=== PATIENT | male | born 1950 | race Caucasian/White ===

== ENCOUNTER 2019-09-24 21:55 | Observation (INO) | payer MEDICARE, SELFPAY ==
--- NOTE | ~2019-09-24 | CT_ITS ---
EXAMINATION: CT abdomen pelvis wo con DATE: 09/24/2019 23:20 INDICATION: Left flank pain TECHNIQUE: Computed tomography (CT) of the abdomen and pelvis was performed without intravenous contr ast. The dose-length product was 820.25 mGy-cm. Automated exposure control and iterative reconstructi on technique were employed. COMPARISON: CT dated 11/26/2018 FINDINGS: Lung bases are unremarkable. No significant pleural or pericardial effusion. Heart size nor mal. Mild atherosclerosis. No lymphadenopathy. Enlarged prostate gland. There is a surgical anastomos is of the distal colon. There are ventral umbilical and supraumbilical hernias containing fat. Small liver cyst left hepatic lobe. There are multiple nonobstructing bilateral renal stones. Stable 14 mm hyperdense exophytic left renal mass, most likely a proteinaceous hyperdense cysts. There is a left mid ureteral stone measuring 5 mm with mild hydronephrosis. Gallbladder is present. Bowel patter n is nonobstructive. Enlarged prostate gland. There is dextrocurvature of the thoracolumbar spine. Th ere are degenerative changes of the hips. IMPRESSION: 1. 5 mm left mid ureteral stone at the L4 level. Mild hydronephrosis. 2: Nonobstructing bilateral nephrolithiasis. 3: Fat-containing supraumbilical and umbilical ventral hernias. 4: Stable 14 mm hyperdense mass exophytic from the left kidney, most likely hyperdense cyst given the lack of interval change. Reviewed, dictated and finalized at location A. IMPRESSION: 1. 5 mm left mid ureteral stone at the L4 level. Mild hydronephrosis. 2: Nonobstructing bilateral nephrolithiasis. 3: Fat-containing supraumbilical and umbilical ventral hernias. 4: Stable 14 mm hyperdense mass exophytic from the left kidney, most likely hyp erdense cyst given the lack of interval change.
[2019-09-24 21:59] VITALS: BP 179/83; PULSE 69; RESP 15; TEMP 36.5; O2SAT 94
--- NOTE | 2019-09-24 22:15 | PC.NURSE ---
asked EDP for pain medication. no further orders at this time.
[2019-09-24 22:22] LABS: Basophils Absolute Auto 0.1 K/mm3 (0.0-0.1); Basophils Percent Auto 0.9 % (0.2-1.2); Eosinophils Absolute Auto 0.3 K/mm3 (0-0.3); Eosinophils Percent Auto 4.1 % (0-4.4); Hematocrit 45.8 % (42.0-52.0); Hemoglobin 15.3 g/dL (14.0-18.0); Immature Granulocyte Absolute 0.01 K/mm3 (0.00-0.031); Immature Granulocyte Percent A 0.1 % (0-0.5); Lymphocytes Absolute Auto 2.35 K/mm3 (0.9-3.2); Lymphocytes Percent Auto 28.6 % (18.3-44.2); Mean Corpuscular HGB Conc 33.4 g/dl (32-36); Mean Corpuscular Hemoglobin 29.8 pg (26-34); Mean Corpuscular Volume 89.1 fl (80-100); Mean Platelet Volume 10.1 fl (7.4-10.4); Monocytes Absolute Auto 0.9 K/mm3 (0.1-0.6); Monocytes Percent Auto 10.4 % (2.6-8.5); Neutrophils Absolute Auto 4.6 K/mm3 (1.3-6.7); Neutrophils Percent Auto 55.9 % (45.5-73.1); Platelet Count Result 293 k/mm3 (150-375); Red Blood Count 5.14 M/mm3 (4.6-6.20); Red Cell Distribution Width 13.2 % (11.5-14.5); White Blood Count 8.2 K/mm3 (4.5-10.0)
[2019-09-24 22:27] LABS: Add Urine Microscopic? YES; Appearance Urine Cloudy (Clear); Bacteria Urine Trace /hpf; Bilirubin Urine Negative (Negative); Blood Urine 3+ (Negative); Color Urine Yellow (Yellow); Glucose Urine UA Negative (Negative); Ketones Urine Trace mg/dL (Negative); Leukocyte Esterase Ur 2+ LEU/UL (Negative); Mucus Urine Heavy /lpf; Nitrate Urine Negative (Negative); Protein Urine 1+ mg/dL (Negative); RBC Urine >75 /hpf (0-2); Specific Grav Ur 1.026 (1.001-1.035); Urobilinogen Urine Negative mg/dL (<2.0); WBC Urine 31-50 /hpf
[2019-09-24 22:33] LABS: Blood Urea Nitrogen 28 mg/dL (9-20); Calcium 9.1 mg/dL (8.4-10.2); Carbon Dioxide 25 mmol/L (22-30); Chloride 106 mmol/L (98-107); Estimated CRCL calculation 47 ml/min; Estimated Glomerular Filt Rate 54; Glucose 118 mg/dL (75-110); Potassium 4.2 mmol/L (3.4-5.0); Sodium 140 mmol/L (137-145)
--- NOTE | 2019-09-24 22:49 | ED.ABDPAIN ---
HPI - Abdominal Pain General Chief Complaint: Abdominal Pain Stated Complaint: L FLANK PAIN Time Seen by Provider: 09/24/19 22:29 Source: patient Mode of arrival: ambulatory Limitations: no limitations History of Present Illness HPI narrative: Patient is a 69-year-old male who presents to the emergency department with complaint of left flank pain. Patient reports onset of symptoms a little over an hour ago. Patient has prior history of kidney stones and states this feels similar. Patient reports onset of pain in the left CVA region of the back with radiation and migration around to the left flank and into the left lower quadrant. Patient denies any overt hematuria or dysuria. He has not had any nausea or vomiting. Patient did not take anything for pain prior to arrival. MD elicited complaint: flank pain Pertinent past history: kidney stones Onset (ago): hour(s) Location: L flank (left CVA region/back) Severity: similar to previous episodes Radiation: LLQ Migration to: L flank Exacerbating factors: nothing Relieving factors: nothing Treatments prior to arrival: other (none) Related Data Home Medications Medication Instructions Recorded Confirmed atorvastatin 09/25/19 Allergies Allergy/AdvReac Type Severity Reaction Status Date / Time sulfamethoxazole Allergy Severe NAUSEA Verified 11/26/18 22:33 VOMITING trimethoprim Allergy Severe NAUSEA Verified 11/26/18 22:33 VOMITING Penicillins Allergy Mild Unknown Verified 09/24/19 23:17 Review of Systems Review of Systems: All systems reviewed & are unremarkable except as noted in HPI and below Constitutional: Constitutional: Denies fever(s) Gastrointestinal: Gastrointestinal: Reports abdominal pain, Denies nausea and Denies vomiting Genitourinary: Genitourinary: Denies hematuria and Denies dysuria COUNT INCLUDES THE [facility] Past Medical History Medical History (Updated 09/25/19 @ 02:10 by Esperanza Sandy MD) Arthritis BPH (benign prostatic hyperplasia) Depression Erectile dysfunction GERD (gastroesophageal reflux disease) History of colon cancer Hyperlipidemia Hypertension Kidney stones Serous otitis media Vertigo Surgical History Surgical History (Updated 09/24/19 @ 22:55 by Esperanza Sandy MD) History of arthroscopy of right knee History of colon resection History of colonoscopy History of cystoscopy History of esophagogastroduodenoscopy (EGD) History of lithotripsy History of myringotomy Social History Social History (Updated 09/24/19 @ 22:56 by Esperanza Sandy MD) Smoking status: Never smoker Gender identity (if verbalized by the patient): Male Exam Const: General: cooperative, alert and uncomfortable Nutritional Appearance: well nourished Orientation/consciousness: patient oriented x3 Limitations: no limitations Resp: Effort & Inspection: normal respiratory effort Auscultation: clear to auscultation bilaterally Cardio: Rate: regular rate Rhythm: regular rhythm GI: GI Palp: Yes Soft to palpation and Yes Tenderness to palpation present (GI) (Left flank/lower quadrant) Auscultation: normal bowel sounds : General: Yes CVA tenderness on the left Skin: General skin exam: normal color Neuro: General: patient oriented x3 Cognition (Neuro): normal cognition Speech: normal speech Extrem: General: normal to inspection, full ROM and no clubbing, cyanosis or edema Psych: Mental Status: mental status grossly normal Affect: normal affect Attitude: cooperative Course Course Emergency Course: Patient given Toradol, 2 doses of fentanyl, IV acetaminophen, and Dilaudid in order to obtain pain control. Patient with left-sided ureteral stone. Plan will be admission to the hospital for pain management and urologic evaluation. 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 Advised to keep patient n.p.o. and will take patient for stent placement in the morning Date: 09/25/19 Time: 03:27 Vital S
[2019-09-24] MEDS: KETOROLAC 30 MG/ML VIAL (*BKC) IV PUSH (22:51)
--- NOTE | 2019-09-24 23:07 | PC.NURSE ---
Pt requesting pain medication. EDP notified no further orders.
[2019-09-24 23:33] VITALS: BP 165/82; PULSE 69; RESP 19; O2SAT 98
[2019-09-25 00:13] VITALS: BP 156/82; PULSE 58; RESP 17; O2SAT 94
[2019-09-25] MEDS: HYDROMORPHONE HCL 1 MG/ML INJ IV PUSH (01:14)
[2019-09-25 01:16] VITALS: BP 149/73; PULSE 61; RESP 15; O2SAT 96
[2019-09-25] MEDS: ONDANSETRON INJ 4 MG/2 ML VIAL IV PUSH (01:25)
[2019-09-25 02:10] VITALS: BP 143/70; PULSE 71; RESP 15; O2SAT 95
[2019-09-25 04:04] VITALS: BP 118/66; PULSE 67; RESP 17; TEMP 36.7; O2SAT 93
[2019-09-25] MEDS: LACTATED RINGERS 1,000 ML 125 ML IV CONT (04:40)
[2019-09-25 04:58] VITALS: BP 148/78; PULSE 62; RESP 20; TEMP 36.6; O2SAT 98; BMI 30.9
--- NOTE | 2019-09-25 07:49 | WPDANESEPPF ---
Anes - Initial Pre Proc Eval Procedure: Operation Date: 09/25/19 09:00 Proposed Procedures p Cysto, RPG, Stone Ext, Stent Placement - Stephen Agrawal MD Date/Time: 09/25/19 07:49 Surgeon: Stephen Agrawal MD Pre Op Diagnosis: Left ureteral stone Patient Data Age: 69 Gender: M Height: 5 ft 9 in Weight: 95.1 kg Last Vital Signs Temp 36.6 C 09/25/19 04:58 Pulse 62 09/25/19 04:58 Resp 20 09/25/19 04:58 BP 148/78 H 09/25/19 04:58 Pulse Ox 98 09/25/19 04:58 Allergies Allergy/AdvReac Type Severity Reaction Status Date / Time sulfamethoxazole Allergy Severe NAUSEA Verified 11/26/18 22:33 VOMITING trimethoprim Allergy Severe NAUSEA Verified 11/26/18 22:33 VOMITING Penicillins Allergy Mild Unknown Verified 09/24/19 23:17 Home Medications Medication Instructions Recorded Confirmed Type amlodipine 5 mg PO DAILY 09/25/19 09/25/19 History aspirin [Aspirin Low Dose] 81 mg PO DAILY 09/25/19 09/25/19 History atorvastatin 20 mg PO QPM 09/25/19 09/25/19 History docusate sodium [Colace] 100 mg PO DAILY 09/25/19 09/25/19 History escitalopram oxalate 20 mg PO DAILY 09/25/19 09/25/19 History lansoprazole 30 mg PO BID 09/25/19 09/25/19 History meclizine 12.5 - 25 mg PO TID PRN 09/25/19 09/25/19 History sildenafil [Viagra] 100 mg PO PRN PRN 09/25/19 09/25/19 History tamsulosin 0.4 mg PO DAILY 09/25/19 09/25/19 History Laboratory Tests 09/24/19 09/24/19 09/24/19 22:16 22:16 22:17 WBC 8.2 K/mm3 K/mm3 (4.5-10.0) RBC 5.14 M/mm3 M/mm3 (4.6-6.20) Hgb 15.3 g/dL g/dL (14.0-18.0) Hct 45.8 % % (42.0-52.0) MCV 89.1 fl fl (80-100) MCH 29.8 pg pg (26-34) MCHC 33.4 g/dl g/dl (32-36) RDW 13.2 % % (11.5-14.5) Plt Count 293 k/mm3 k/mm3 (150-375) MPV 10.1 fl fl (7.4-10.4) Immature Gran % (Auto) 0.1 % % (0-0.5) Neut % (Auto) 55.9 % % (45.5-73.1) Lymph % (Auto) 28.6 % % (18.3-44.2) [place] % (Auto) 10.4 % H % (2.6-8.5) Eos % (Auto) 4.1 % % (0-4.4) Baso % (Auto) 0.9 % % (0.2-1.2) Lymph # (Auto) 2.35 K/mm3 K/mm3 (0.9-3.2) [place] # (Auto) 0.9 K/mm3 H K/mm3 (0.1-0.6) Eos # (Auto) 0.3 K/mm3 K/mm3 (0-0.3) Baso # (Auto) 0.1 K/mm3 K/mm3 (0.0-0.1) Abs Immat Gran (auto) 0.01 K/mm3 K/mm3 (0.00-0.031) Absolute Neuts (auto) 4.6 K/mm3 K/mm3 (1.3-6.7) Absolute Nucleated RBC 0.0 K/mm3 K/mm3 (0.0-0.012) Nucleated RBC % 0.0 % % (0.0-0.2) Sodium 140 mmol/L mmol/L (137-145) Potassium 4.2 mmol/L mmol/L (3.4-5.0) Chloride 106 mmol/L mmol/L (98-107) Carbon Dioxide 25 mmol/L mmol/L (22-30) BUN 28 mg/dL H mg/dL (9-20) Creatinine 1.30 mg/dL mg/dL (0.7-1.3) Estim Creat Clear Calc 47 ml/min ml/min Estimated GFR 54 L (59 - ) Glucose 118 mg/dL H mg/dL (75-110) Calcium 9.1 mg/dL mg/dL (8.4-10.2) Urine Color Yellow (Yellow) Urine Appearance Cloudy H (Clear) Urine pH 5.0 (5.0-9.0) Ur Specific [place] 1.026 (1.001-1.035) Urine Protein 1+ mg/dL H mg/dL (Negative) Urine Glucose (UA) Negative mg/dL mg/dL (Negative) Urine Ketones Trace mg/dL mg/dL (Negative) Ur Blood (Man) 3+ H (Negative) Urine Nitrate Negative (Negative) Urine Bilirubin Negative (Negative) Urine Urobilinogen Negative mg/dL mg/dL (<2.0) Leukocyte Esterase Rfl 2+ MEME/UL H MEME/UL (Negative) Urine RBC >75 /hpf H /hpf (0-2) Urine WBC 31-50 /hpf H /hpf Urine Bacteria Trace /hpf /hpf Urine Mucus Heavy /lpf H /lpf Patient hx anesthesia problems: none Family hx anesthesia problems: none PMFSH Past Me
--- NOTE | 2019-09-25 08:51 | PM.IMHP ---
H&P: HPI History of Present Illness Chief complaint: Left ureteral stone Narrative: Franky Horowitz is a 69 year old male with a history of kidney stones admitted through the ER with left flank pain. CT KUB shows partially obstructing 5mm mid left ureteral stone. Pt also as several nonobstructing renal stone. His pain has resolved this morning and controlled with oral med. Pt has no N/V or fever and is voiding well. Review of Systems Constitutional: Constitutional: Reports no additional constitutional complaints Cardiovascular: Cardiovascular: Reports no additional cardiovascular complaints Respiratory: Respiratory: Reports no additional respiratory complaints Genitourinary: Genitourinary: Reports no additional male genitourinary complaints [facility] Past Medical History Medical History Arthritis BPH (benign prostatic hyperplasia) Depression Erectile dysfunction GERD (gastroesophageal reflux disease) History of colon cancer Hyperlipidemia Hypertension Kidney stones Serous otitis media Vertigo Surgical History Surgical History History of arthroscopy of right knee History of colon resection History of colonoscopy History of cystoscopy History of esophagogastroduodenoscopy (EGD) History of lithotripsy History of myringotomy Family History Family History Father Acute myocardial infarction Congestive heart failure Social History Social History Smoking status: Never smoker Alcohol intake: never Substance use: never Substance use type: does not use Gender identity (if verbalized by the patient): Male Spiritual care concerns: No Agree to blood products: Yes Meds Home Medications and Allergies Home Medications Medication Instructions Recorded Confirmed Type amlodipine 5 mg PO DAILY 09/25/19 09/25/19 History aspirin [Aspirin Low Dose] 81 mg PO DAILY 09/25/19 09/25/19 History atorvastatin 20 mg PO QPM 09/25/19 09/25/19 History docusate sodium [Colace] 100 mg PO DAILY 09/25/19 09/25/19 History escitalopram oxalate 20 mg PO DAILY 09/25/19 09/25/19 History lansoprazole 30 mg PO BID 09/25/19 09/25/19 History meclizine 12.5 - 25 mg PO TID PRN 09/25/19 09/25/19 History sildenafil [Viagra] 100 mg PO PRN PRN 09/25/19 09/25/19 History tamsulosin 0.4 mg PO DAILY 09/25/19 09/25/19 History Allergies Allergy/AdvReac Type Severity Reaction Status Date / Time sulfamethoxazole Allergy Severe NAUSEA Verified 11/26/18 22:33 VOMITING trimethoprim Allergy Severe NAUSEA Verified 11/26/18 22:33 VOMITING Penicillins Allergy Mild Unknown Verified 09/24/19 23:17 Vital Signs Vital Signs - 24 hr 09/24/19 21:59 09/24/19 23:33 09/25/19 00:13 Temperature 36.5 C Pulse Rate 69 69 58 L Respiratory Rate 15 19 17 Blood Pressure 179/83 H 165/82 H 156/82 H Pulse Oximetry 94 98 94 09/25/19 01:16 09/25/19 02:10 09/25/19 04:04 Temperature 36.7 C Pulse Rate 61 71 67 Respiratory Rate 15 15 17 Blood Pressure 149/73 H 143/70 H 118/66 Pulse Oximetry 96 95 93 09/25/19 04:58 Temperature 36.6 C Pulse Rate 62 Respiratory Rate 20 Blood Pressure 148/78 H Pulse Oximetry 98 H&P: Results Labs Labs: Short CBC 09/24/19 Range/Units 22:17 WBC 8.2 (4.5-10.0) K/mm3 Hgb 15.3 (14.0-18.0) g/dL Hct 45.8 (42.0-52.0) % Plt Count 293 (150-375) k/mm3 BMP 09/24/19 22:16 Sodium 140 Potassium 4.2 Chloride 106 Carbon Dioxide 25 BUN 28 H Creatinine 1.30 Glucose 118 H Calcium 9.1 Urine 09/24/19 Range/Units 22:16 Urine Color Yellow (Yellow) Urine Appearance Cloudy H (Clear) Urine pH 5.0 (5.0-9.0) Ur Specific [place] 1.026 (1.001-1.035) Urine Protein 1+ H (Negative) mg/dL Urine Glucose (UA) Negative (Negative) mg/dL
== END 2019-09-25 10:24 | disposition home or self-care (01) ==
LOC: ANHED 09-25 02:10 → ANH2MED 09-25 03:37
PROVIDERS: Admitting Provider Urology; Emergency Provider Emergency Medicine; PCP Internal Medicine; Visit Provider Urology
PROC: (CPT 52352; principal; 2019-09-25 09:00)
DX: N20.1 Calculus of ureter (principal); Z87.442 Personal history of urinary calculi; N40.0 Benign prostatic hyperplasia without lower urinary tract symptoms; N52.9 Male erectile dysfunction, unspecified; I10 Essential (primary) hypertension; E78.5 Hyperlipidemia, unspecified; K21.9 Gastro-esophageal reflux disease without esophagitis; Z79.82 Long term (current) use of aspirin; Z79.899 Other long term (current) drug therapy; Z85.038 Personal history of other malignant neoplasm of large intestine
CPT/HCPCS: 36415; 74176; 80048; 81001; 85025; 87040; 87086; 96361; 96365; 96375; 96376; 99285; A9270; G0378; J0131; J0696; J1170; J1885; J2405; J3010; J7120

== ENCOUNTER 2019-09-28 00:27 | Day surgery (SDC) | payer MEDICARE, SELFPAY ==
[2019-09-27 15:32] VITALS: BMI 28.8
[2019-09-28] VITALS (9 sets, daily range): BP systolic 143–161; BP diastolic 68–94; PULSE 58–85; RESP 8–20; TEMP 35.6–36.1; O2SAT 93–99
--- NOTE | ~2019-09-28 | XR_ITS ---
EXAMINATION: XR retrograde pyelo w/stent LT DATE: 09/28/2019 11:01 INDICATION: Left internal ureteral stent placement TECHNIQUE: Fluoroscopic images from a left internal ureteral stent placement are submitted for review . 5 fluoroscopic images. FINDINGS: There is a left double-J internal ureteral stent projecting in expected position, with proximal [place] loop at the level of the renal pelvis and distal loop in the pelvis within the bladder lumen. IMPRESSION: 1. Left internal ureteral stent placement. Please refer to real-time procedural findings for detail s. Reviewed, dictated and finalized at location A. IMPRESSION: 1. Left internal ureteral stent placement. Please refer to real-time procedur al findings for details.
--- NOTE | 2019-09-28 07:03 | ECG_ITS ---
Measurements Intervals [place] Rate: 75 P: 20 AR: 128 QRS: -30 QRSD: 112 T: 34 QT: 384 QTc: 430 Interpretive Statements SINUS RHYTHM INTRAVENTRICULAR CONDUCTION DELAY BORDERLINE R WAVE PROGRESSION, ANTERIOR LEADS BORDERLINE ECG Electronically Signed On 09-28-2019 9:00:41 CDT by Tono Cortés D.O.
--- NOTE | 2019-09-28 09:11 | WPDHPUPDATE1 ---
History and Physical Update Update Date/Time: 09/28/19 09:11 History and Physical has been reviewed, including an updated exam of the patient. There are NO changes in the patient's condition. Risks, benefits, and alternatives have been discussed and questions answered. Patient agrees to proceed with procedure.
[2019-09-28] MEDS: LACTATED RINGERS 1,000 ML 30 ML IV CONT (09:30)
--- NOTE | 2019-09-28 09:55 | WPDANESEPPF ---
Anes - Initial Pre Proc Eval Procedure: Operation Date: 09/28/19 11:00 Proposed Procedures p Left Cystoscopy, Retrograde Pyelogram, Possible Stone Extraction, Possible Left Stent Placement - Dante Galindo MD s Holmium Laser Procedure - Dante Galindo MD Date/Time: 09/28/19 09:55 Surgeon: Dante Galindo MD Pre Op Diagnosis: left ureteral stone Patient Data Age: 69 Gender: M Height: 5 ft 9 in Weight: 91.5 kg Last Vital Signs Temp 35.6 C L 09/28/19 08:48 Pulse 85 09/28/19 08:48 Resp 20 09/28/19 08:48 BP 159/76 H 09/28/19 08:48 Pulse Ox 99 09/28/19 08:48 Allergies Allergy/AdvReac Type Severity Reaction Status Date / Time sulfamethoxazole Allergy Severe NAUSEA Verified 09/28/19 08:56 VOMITING trimethoprim Allergy Severe NAUSEA Verified 09/28/19 08:56 VOMITING Penicillins AdvReac Mild HEADACHES Verified 09/28/19 08:56 Home Medications Medication Instructions Recorded Confirmed Type amlodipine 5 mg PO DAILY 09/25/19 09/28/19 History aspirin [Aspirin Low Dose] 81 mg PO DAILY 09/25/19 09/27/19 History atorvastatin 20 mg PO QPM 09/25/19 09/28/19 History docusate sodium [Colace] 100 mg PO DAILY 09/25/19 09/28/19 History escitalopram oxalate 20 mg PO DAILY 09/25/19 09/28/19 History hydrocodone-acetaminophen [[place]] 1 tablet PO Q4H PRN #20 tablet NS 09/25/19 09/28/19 Rx meclizine 12.5 - 25 mg PO TID PRN 09/25/19 09/28/19 History sildenafil [Viagra] 100 mg PO PRN PRN 09/25/19 09/27/19 History tamsulosin 0.4 mg PO DAILY 09/25/19 09/27/19 History omeprazole 40 mg PO DAILY 09/27/19 09/28/19 History Patient hx anesthesia problems: none Family hx anesthesia problems: none PMFSH Past Medical History Medical History Arthritis BPH (benign prostatic hyperplasia) Depression Erectile dysfunction GERD (gastroesophageal reflux disease) History of colon cancer Hyperlipidemia Hypertension Kidney stones Serous otitis media Vertigo Surgical History Surgical History History of arthroscopy of right knee History of colon resection History of colonoscopy History of cystoscopy History of esophagogastroduodenoscopy (EGD) History of lithotripsy History of myringotomy Family History Family History Father Acute myocardial infarction Congestive heart failure Social History Social History Smoking status: Never smoker Alcohol intake: never Substance use: never Substance use type: does not use Gender identity (if verbalized by the patient): Male Spiritual care concerns: No Agree to blood products: Yes Anes - Eval Final PreProcedure Day of Procedure 09/28/19 09:55 Patient weight: overweight Heart: regular rate and rhythm Lungs: clear to auscultation Airway: Mallampati scale class II Neurological: alert and oriented Last oral intake: >/= 8 hours ASA classification: III Emergent: no Anesthetic plan: proceed Anesthesia type and monitoring: general LMA and standard monitoring Informed Consent: The patient's anesthetic plan and its attendant risks and benefits were discussed with the patient/family/POA. Questions were solicited and answers provided to the satisfaction of the patient/family/POA.
[2019-09-28] MEDS: ceFAZolin 2 GM/D5W 50 ML 2 GM/50 ML BAG IVPB (10:15)
[2019-09-28] MEDS: LIDOCAINE HCL 2% GEL UROJET 10 ML PKG MUCOUS MEM (10:59)
--- NOTE | 2019-09-28 10:59 | PM.PROC ---
Procedure Note - Detailed Date of procedure: 09/28/19 Pre-op diagnosis: left ureteral stone Post-op diagnosis: same Procedure performed: Cystoscopy, left retrograde pyelogram, left ureteroscopy with holmium laser of ureteral calculus, left stent placement, Description of procedure: Patient was taken to the operative suite and correctly identified. Once anesthesia was obtained he was placed in dorsal lithotomy position and prepped and draped usual sterile fashion. Twenty-two Hebrew scope was inserted in bladder in direct vision. There are no tumors noted. He does have an enlarged obstructing appearing prostate with a bit of a median lobe. The left ureteral orifice was cannulated with a guidewire. A rigid ureteral scope was then inserted into the ureter. The stone was visualized but too large to retrieve in 1 piece. An escape basket was placed around the stone. We then used a 270 micron fiber to fragment the stone into multiple pieces. The largest stone was sent for analysis. Reinspection of the ureter reveals no residual ureteral stones. Pyelogram was then performed to confirm placement of the stent in the renal pelvis. A 4.8 contour stent was then placed with the proximal end coiled in the left renal pelvis. The distal end was coiled in the bladder. Bladder was drained and 2% viscous lidocaine was inserted into the urethra. Patient is taken recovery room in stable condition. He will follow up in about 1 week's time for stent removal is to call for that appointment. Anesthesia: GLMA Surgeon: Dante Galindo MD Drains: Yes Packing: No Pathology: yes Complications: No immediate complications Condition: stable Disposition: PACU
== END 2019-09-28 12:52 | disposition home or self-care (01) ==
PROVIDERS: PCP Internal Medicine; Visit Provider Urology
PROC: (CPT 52352; principal; 2019-09-28 11:00)
PROC: (CPT 52356; 2019-09-28 11:00)
DX: N20.1 Calculus of ureter (principal); I10 Essential (primary) hypertension; E78.5 Hyperlipidemia, unspecified; K21.9 Gastro-esophageal reflux disease without esophagitis; N40.0 Benign prostatic hyperplasia without lower urinary tract symptoms; M19.90 Unspecified osteoarthritis, unspecified site; F32.9 Major depressive disorder, single episode, unspecified; Z85.038 Personal history of other malignant neoplasm of large intestine; Z79.82 Long term (current) use of aspirin
CPT/HCPCS: 52356; 74420; 82365; 88300; 88305; 93005; C1758; C1769; C2617; J0690; J1100; J2405; J2704; J3010; J7120; Q9966

== ENCOUNTER 2019-12-02 10:31 | Outpatient (CLI) | payer MEDICARE, SELFPAY ==
--- NOTE | ~2019-12-02 | XR_ITS ---
EXAMINATION: XR abdomen/kub 1V INDICATION: Calculus of the kidney with calculus of the ureter TECHNIQUE: Supine views of the abdomen were obtained on 2 radiographs. COMPARISON: 09/24/2019 FINDINGS: Stones measuring 4 mm and 5 mm are seen in the mid and lower right kidney, respectively. A stone previously seen in the left proximal ureter on the comparison CT is not definitely identified. Left nephrolithiasis on the comparison CT is also not seen. A 4 mm linear density in the left pelvis could reflect a stone fragment in the distal ureter. A bone island is noted in the right acetabulum. The bowel gas pattern is normal. A surgical suture line is noted in the rectum. IMPRESSION: 1. Possible stone or stone fragment in the distal left ureter. 2. Right nephrolithiasis. Reviewed, dictated and finalized at location A.
== END 2019-12-02 10:32 | disposition home or self-care (01) ==
PROVIDERS: Visit Provider Urology
DX: N20.2 Calculus of kidney with calculus of ureter (principal)
CPT/HCPCS: 74018

== ENCOUNTER 2020-01-27 16:13 | Emergency (ER) | payer MEDICARE, SELFPAY ==
[2020-01-27] VITALS (18 sets, daily range): BP systolic 143–167; BP diastolic 71–92; PULSE 80–89; RESP 16–18; TEMP 36.6; O2SAT 94–100
--- NOTE | 2020-01-27 16:41 | ED.MALEGU ---
HPI - Male Genitourinary General Chief complaint: Urogenital-Male Stated complaint: unable to urinate s/p procedure Time Seen by Provider: 01/27/20 16:15 History of Present Illness HPI Narrative: He has cystoscopy and prostate biopsy performed at [place] earlier today. He developed severe pain in the lower abdomen, inability to urinate, and blood leaking from the penis. He has not had urinary retention in the past. Related Data Home Medications Medication Instructions Recorded Confirmed amlodipine 5 mg PO DAILY 09/25/19 09/28/19 aspirin [Aspirin Low Dose] 81 mg PO DAILY 09/25/19 09/27/19 atorvastatin 20 mg PO QPM 09/25/19 09/28/19 escitalopram oxalate 20 mg PO DAILY 09/25/19 09/28/19 meclizine 12.5 - 25 mg PO TID PRN 09/25/19 09/28/19 sildenafil [Viagra] 100 mg PO PRN PRN 09/25/19 09/27/19 tamsulosin 0.4 mg PO DAILY 09/25/19 09/27/19 omeprazole 40 mg PO DAILY 09/27/19 09/28/19 diphenhydramine-acetaminophen 1 tablet PO HS PRN 01/27/20 phenazopyridine 200 mg PO TID PRN 01/27/20 Allergies Allergy/AdvReac Type Severity Reaction Status Date / Time sulfamethoxazole Allergy Severe NAUSEA Verified 09/28/19 08:56 VOMITING trimethoprim Allergy Severe NAUSEA Verified 09/28/19 08:56 VOMITING Penicillins AdvReac Mild HEADACHES Verified 09/28/19 08:56 Review of Systems Review of Systems: All systems reviewed & are unremarkable except as noted in HPI and below Constitutional: Constitutional: Denies fever(s) Cardiovascular: Cardiovascular: Denies chest pain Respiratory: Respiratory: Denies dyspnea Gastrointestinal: Gastrointestinal: Reports abdominal pain, Denies nausea and Denies vomiting Genitourinary: Genitourinary: Reports hematuria Musculoskeletal: Musculoskeletal: Denies back pain Neurologic: Denies confusion and Denies weakness [facility] Past Medical History Medical History Arthritis BPH (benign prostatic hyperplasia) Depression Erectile dysfunction GERD (gastroesophageal reflux disease) History of colon cancer Hyperlipidemia Hypertension Kidney stones Serous otitis media Vertigo Surgical History Surgical History History of arthroscopy of right knee History of colon resection History of colonoscopy History of cystoscopy History of esophagogastroduodenoscopy (EGD) History of lithotripsy History of myringotomy Family History Family History Father Acute myocardial infarction Congestive heart failure Social History Social History Smoking status: Never smoker Alcohol intake: never Substance use: never Substance use type: does not use Gender identity (if verbalized by the patient): Male Spiritual care concerns: No Agree to blood products: Yes Exam Const: General: healthy appearing and alert Orientation/consciousness: patient oriented x3 Other: mild distress HENMT: Head: normal to inspection Neck: Neck: normal visual inspection and no lymphadenopathy Resp: Effort & Inspection: normal respiratory effort Auscultation: clear to auscultation bilaterally, no rales, no rhonchi and no wheezes Cardio: Jugular venous distension: no JVD Rate: regular rate Rhythm: regular rhythm Heart sounds: no murmurs GI: Inspection: non-distended GI Palp: No Tenderness to palpation present (GI) : General: Yes Bladder palpation abnormal distended and tender Skin: General skin exam: normal color Neuro: General: patient oriented x3, moves all extremities and no focal motor deficits Cranial nerves: Yes CN's II-XII intact bilaterally Speech: normal speech Extrem: General: normal to inspection and no edema Psych: Appearance: well kempt Affect: normal affect Course Vital Signs Vital signs: Vital Signs Temperature 36.6 C 01/27/20 16:25 Pulse Rate 89
== END 2020-01-27 20:00 | disposition home or self-care (01) ==
PROVIDERS: Emergency Provider Emergency Medicine
DX: N99.89 Other postprocedural complications and disorders of genitourinary system (principal); R33.8 Other retention of urine; N40.1 Benign prostatic hyperplasia with lower urinary tract symptoms; M19.90 Unspecified osteoarthritis, unspecified site; K21.9 Gastro-esophageal reflux disease without esophagitis; E78.5 Hyperlipidemia, unspecified; I10 Essential (primary) hypertension; Z85.038 Personal history of other malignant neoplasm of large intestine; Z90.49 Acquired absence of other specified parts of digestive tract; F32.9 Major depressive disorder, single episode, unspecified; N52.9 Male erectile dysfunction, unspecified; Z87.442 Personal history of urinary calculi
CPT/HCPCS: 51700; 51702; 99283

== ENCOUNTER 2020-04-24 03:35 | Emergency (ER) | payer MEDICARE, SELFPAY ==
--- NOTE | ~2020-04-24 | CT_ITS ---
EXAMINATION: CT abdomen pelvis wo con DATE: 04/24/2020 04:00 INDICATION: Right flank pain. History of kidney stones. TECHNIQUE: Computed tomography (CT) of the abdomen and pelvis was performed without intravenous contr ast. The dose-length product was 1018.99 mGy-cm. Automated exposure control and iterative reconstruct ion technique were employed. COMPARISON: CT dated 09/24/2019 FINDINGS: There is a 5 mm right mid ureteral stone with mild-moderate right hydronephrosis. There is a large amount of perinephric and periureteral edema, suspicious for forniceal rupture. There are non obstructing bilateral renal stones. There is a hyperdense cyst of the left kidney. Enlarged prostate gland. There is surgical anastomotic site in the pelvis. Fat-containing supraumbilical and umbilical ventral hernias. No bowel obstruction. The liver, spleen, pancreas, adrenal glands are unremarkable. No lymphadenopathy. Mild atherosclerosi s. IMPRESSION: 1. 5 mm right mid ureteral stone with mild-moderate right hydronephrosis with possible forniceal rupt ure as evidenced by large amount of perinephric edema. 2: Nonobstructing bilateral nephrolithiasis. Reviewed, dictated and finalized at location B. TRIC RANGE PREPARER IMPRESSION: 1. 5 mm right mid ureteral stone with mild-moderate right hydronephrosis with p ossible forniceal rupture as evidenced by large amount of perinephric edema. 2: Nonobstructing bilateral nephrolithiasis.
[2020-04-24 03:37] VITALS: BP 185/88; PULSE 66; RESP 26; TEMP 36.6; O2SAT 96
[2020-04-24 04:06] LABS: Basophils Absolute Auto 0.1 K/mm3 (0.0-0.1); Eosinophils Absolute Auto 0.2 K/mm3 (0-0.3); Eosinophils Percent Auto 2.3 % (0-4.4); Hematocrit 40.9 % (42.0-52.0); Hemoglobin 13.7 g/dL (14.0-18.0); Immature Granulocyte Absolute 0.02 K/mm3 (0.00-0.031); Immature Granulocyte Percent A 0.3 % (0-0.5); Lymphocytes Absolute Auto 1.29 K/mm3 (0.9-3.2); Lymphocytes Percent Auto 18.7 % (18.3-44.2); Mean Corpuscular HGB Conc 33.5 g/dl (32-36); Mean Corpuscular Hemoglobin 29.9 pg (26-34); Mean Corpuscular Volume 89.3 fl (80-100); Mean Platelet Volume 9.4 fl (7.4-10.4); Monocytes Absolute Auto 0.4 K/mm3 (0.1-0.6); Monocytes Percent Auto 5.6 % (2.6-8.5); Neutrophils Percent Auto 72.1 % (45.5-73.1); Platelet Count Result 231 k/mm3 (150-375); Red Blood Count 4.58 M/mm3 (4.6-6.20); Red Cell Distribution Width 13.2 % (11.5-14.5); White Blood Count 6.9 K/mm3 (4.5-10.0)
[2020-04-24] MEDS: ONDANSETRON INJ 4 MG/2 ML VIAL IV PUSH (04:09)
[2020-04-24] MEDS: HYDROmorphone HCL INJ (*CRX) 1 MG/ML SYR 0.5 MG IV PUSH (04:09)
[2020-04-24] MEDS: SODIUM CHLORIDE 0.9% IV 1,000 ML 999 ML IV CONT (04:09)
[2020-04-24] MEDS: KETOROLAC 30 MG/ML VIAL (*BKC) 15 MG IV PUSH (04:10)
[2020-04-24 04:15] LABS: Alanine Aminotransferase 40 U/L (4-50); Albumin Level 4.1 g/dL (3.5-5.1); Alkaline Phosphatase 133 U/L (38-126); Anion Gap 7 mmol/L (8-16); Aspartate Amino Transferase 38 U/L (17-59); Bilirubin,Total 0.5 mg/dL (0.2-1.3); Blood Urea Nitrogen 24 mg/dL (9-20); Carbon Dioxide 29 mmol/L (22-30); Chloride 105 mmol/L (98-107); Estimated CRCL calculation 50 ml/min; Estimated Glomerular Filt Rate 60; Glucose 184 mg/dL (75-110); Lipase 48 U/L (23-300); Sodium 141 mmol/L (137-145)
[2020-04-24] MEDS: HYDROmorphone HCL INJ (*CRX) 1 MG/ML SYR IV PUSH (04:55)
--- NOTE | 2020-04-24 05:05 | ED.ABDPAIN ---
HPI - Abdominal Pain General Chief Complaint: Abdominal Pain Stated Complaint: kidney stone? Time Seen by Provider: 04/24/20 03:41 History of Present Illness HPI narrative: Patient is a 69-year-old gentleman who presents the emergency department with chief complaint of abdominal pain. Patient states the pain is in the right side of his abdomen states that it says sharp states that it is not really able to fully describe. Patient reports this feels different from whenever he got his previous kidney stones but does have a similar feel to it as well. The patient states in the past has had prior surgeries including a bowel resection. Patient states that he had a small bowel movement last 24 hours patient denies urinary symptoms denies blood in his urine denies fever or chills. Related Data Home Medications Medication Instructions Recorded Confirmed amlodipine 5 mg PO DAILY 09/25/19 09/28/19 aspirin [Aspirin Low Dose] 81 mg PO DAILY 09/25/19 09/27/19 atorvastatin 20 mg PO HS 09/25/19 09/28/19 escitalopram oxalate 20 mg PO DAILY 09/25/19 09/28/19 meclizine 12.5 - 25 mg PO TID PRN 09/25/19 09/28/19 sildenafil [Viagra] 100 mg PO PRN PRN 09/25/19 09/27/19 tamsulosin 0.4 mg PO DAILY 09/25/19 09/27/19 diphenhydramine-acetaminophen 1 tablet PO HS PRN 01/27/20 docusate sodium [Colace] 100 mg PO HS 04/24/20 finasteride 5 mg PO DAILY 04/24/20 lansoprazole 30 mg PO DAILY 04/24/20 Allergies Allergy/AdvReac Type Severity Reaction Status Date / Time sulfamethoxazole Allergy Severe NAUSEA Verified 04/24/20 04:37 VOMITING trimethoprim Allergy Severe NAUSEA Verified 04/24/20 04:37 VOMITING Penicillins AdvReac Mild HEADACHES Verified 04/24/20 04:37 Review of Systems Review of Systems: Narrative: CONSTITUTIONAL: Denies fever, chills, or sweats. EYES: Denies visual changes, redness, or discharge. ENT: Denies rhinorrhea, congestion, sore throat, or otalgia. CARDIOVASCULAR: Denies chest pain, palpitations, or edema. RESPIRATORY: Denies cough or dyspnea. GASTROINTESTINAL: Denies abdominal pain, nausea, vomiting, or diarrhea. GENITOURINARY: Denies dysuria or hematuria. SKIN: Denies rash or itching. MUSCULOSKELETAL: Denies back pain, joint pain, or myalgia. NEUROLOGIC: Denies headache, numbness, or weakness. PSYCHIATRIC: Denies anxiety or depression. A 10 system review of systems was completed on the patient and is negative except for what is stated in the HPI. Nursing and ancillary documentation was reviewed. [facility] Past Medical History Medical History (Updated 04/24/20 @ 06:18 by Porfirio Valerio MD) Arthritis BPH (benign prostatic hyperplasia) Depression Erectile dysfunction GERD (gastroesophageal reflux disease) History of colon cancer Hyperlipidemia Hypertension Kidney stones Serous otitis media Vertigo Surgical History Surgical History History of arthroscopy of right knee History of colon resection History of colonoscopy History of cystoscopy History of esophagogastroduodenoscopy (EGD) History of lithotripsy History of myringotomy Family History Family History Father Acute myocardial infarction Congestive heart failure Social History Social History Smoking status: Never smoker Alcohol intake: never Substance use: never Substance use type: does not use Gender identity (if verbalized by the patient): Male Spiritual care concerns: No Agree to blood products: Yes Exam Narrative: Exam Narrative: GENERAL: Well-appearing, well-nourished, and in no acute distress. HEAD: Normocephalic, atraumatic. EYES: PERRLA and EOMI. ENT: Nares clear, no rhinorrhea or epistaxis. Mucous membranes moist. NECK: Supple. CHEST: Clear to auscultation. No respiratory distress. HEART: Regular rate and rhythm. No murmur he
[2020-04-24 05:14] LABS: Add Urine Microscopic? YES; Appearance Urine Clear (Clear); Bilirubin Urine Negative (Negative); Blood Urine 2+ (Negative); Color Urine Yellow (Yellow); Glucose Urine UA 1+ mg/dL (Negative); Ketones Urine Negative (Negative); Leukocyte Esterase Ur Negative LEU/UL (Negative); Mucus Urine Rare /lpf; Nitrate Urine Negative (Negative); Protein Urine Negative (Negative); RBC Urine 51-75 /hpf (0-2); Specific Grav Ur 1.019 (1.001-1.035); Urobilinogen Urine Negative mg/dL (<2.0)
[2020-04-24 06:28] VITALS: BP 144/76; PULSE 67; RESP 16; O2SAT 96
== END 2020-04-24 06:30 | disposition home or self-care (01) ==
PROVIDERS: Emergency Provider Emergency Medicine; PCP Internal Medicine
DX: N13.2 Hydronephrosis with renal and ureteral calculous obstruction (principal); M19.90 Unspecified osteoarthritis, unspecified site; N40.0 Benign prostatic hyperplasia without lower urinary tract symptoms; K21.9 Gastro-esophageal reflux disease without esophagitis; Z85.038 Personal history of other malignant neoplasm of large intestine; E78.5 Hyperlipidemia, unspecified; I10 Essential (primary) hypertension; Z87.442 Personal history of urinary calculi; F32.9 Major depressive disorder, single episode, unspecified; Z90.49 Acquired absence of other specified parts of digestive tract; Z79.82 Long term (current) use of aspirin
CPT/HCPCS: 36415; 74176; 80053; 81001; 83605; 83690; 85025; 86140; 87040; 87077; 87086; 87088; 87186; 87635; 93005; 96361; 96374; 96375; 96376; 99284; C9803; J1170; J1885; J2405; J7030; U0003

== ENCOUNTER 2020-04-24 16:45 | Emergency (ER) | payer MEDICARE, SELFPAY ==
[2020-04-24 16:46] VITALS: BP 162/69; PULSE 89; RESP 19; TEMP 38.1; O2SAT 99
[2020-04-24 17:01] VITALS: BP 155/81; PULSE 93; RESP 14; O2SAT 97
--- NOTE | 2020-04-24 17:04 | ECG_ITS ---
Measurements Intervals [place] Rate: 90 P: 28 W[place]: 151 QRS: -29 QRSD: 99 T: 70 QT: 364 QTc: 447 Interpretive Statements SINUS RHYTHM BORDERLINE R WAVE PROGRESSION, ANTERIOR LEADS BASELINE ARTIFACT- I, II, AVR, AVF, V1 BORDERLINE ECG Electronically Signed On 04-24-2020 17:08:47 WEIR FISHER by Tono Cortés D.O.
[2020-04-24 17:12] LABS: Basophils Percent Auto 0.2 % (0.2-1.2); Eosinophils Percent Auto 0.5 % (0-4.4); Hematocrit 43.1 % (42.0-52.0); Hemoglobin 14.3 g/dL (14.0-18.0); Immature Granulocyte Absolute 0.03 K/mm3 (0.00-0.031); Immature Granulocyte Percent A 0.3 % (0-0.5); Lymphocytes Absolute Auto 0.52 K/mm3 (0.9-3.2); Lymphocytes Percent Auto 6.1 % (18.3-44.2); Mean Corpuscular HGB Conc 33.2 g/dl (32-36); Mean Corpuscular Hemoglobin 30.4 pg (26-34); Mean Corpuscular Volume 91.7 fl (80-100); Mean Platelet Volume 9.4 fl (7.4-10.4); Monocytes Absolute Auto 0.3 K/mm3 (0.1-0.6); Monocytes Percent Auto 3.3 % (2.6-8.5); Neutrophils Absolute Auto 7.7 K/mm3 (1.3-6.7); Neutrophils Percent Auto 89.6 % (45.5-73.1); Platelet Count Result 200 k/mm3 (150-375); Red Cell Distribution Width 13.2 % (11.5-14.5); White Blood Count 8.6 K/mm3 (4.5-10.0)
[2020-04-24] MEDS: SODIUM CHLORIDE 0.9% IV 1,000 ML 999 ML IV CONT ×2 (17:12→18:12)
[2020-04-24] MEDS: ONDANSETRON INJ 4 MG/2 ML VIAL IV PUSH (17:12)
--- NOTE | 2020-04-24 17:21 | ED.WEAKNESS ---
HPI - Weakness General Chief complaint: Weakness Stated complaint: NAUSEA Time Seen by Provider: 04/24/20 16:49 History of Present Illness HPI Narrative: 69 yo male presents from home for weakness and chills. Shortly before coming in this afternoon he developed uncontrollable shaking and nausea. He also felt like his legs were very weak. On arrival here he was found to have a fever. He was seen here earlier in the day and diagnosed with a 5 mm right ureteral stone. He had just taken pain medication shortly before his symptoms started this evening. No cough congestion Related Data Home Medications Medication Instructions Recorded Confirmed amlodipine 5 mg PO DAILY 09/25/19 09/28/19 aspirin [Aspirin Low Dose] 81 mg PO DAILY 09/25/19 09/27/19 atorvastatin 20 mg PO HS 09/25/19 09/28/19 escitalopram oxalate 20 mg PO DAILY 09/25/19 09/28/19 meclizine 12.5 - 25 mg PO TID PRN 09/25/19 09/28/19 sildenafil [Viagra] 100 mg PO PRN PRN 09/25/19 09/27/19 tamsulosin 0.4 mg PO DAILY 09/25/19 09/27/19 diphenhydramine-acetaminophen 1 tablet PO HS PRN 01/27/20 docusate sodium [Colace] 100 mg PO HS 04/24/20 finasteride 5 mg PO DAILY 04/24/20 lansoprazole 30 mg PO DAILY 04/24/20 Allergies Allergy/AdvReac Type Severity Reaction Status Date / Time sulfamethoxazole Allergy Severe NAUSEA Verified 04/24/20 04:37 VOMITING trimethoprim Allergy Severe NAUSEA Verified 04/24/20 04:37 VOMITING Penicillins AdvReac Mild HEADACHES Verified 04/24/20 04:37 Review of Systems Review of Systems: All systems reviewed & are unremarkable except as noted in HPI and below Constitutional: Constitutional: Reports fever(s) ENT: Denies sore throat Cardiovascular: Cardiovascular: Denies chest pain Respiratory: Respiratory: Denies cough and Denies dyspnea Gastrointestinal: Gastrointestinal: Denies abdominal pain and Reports nausea Genitourinary: Genitourinary: Denies dysuria Musculoskeletal: Musculoskeletal: Reports back pain Neurologic: Reports weakness [facility] Past Medical History Medical History (Updated 04/25/20 @ 00:00 by Background Daemon) Arthritis BPH (benign prostatic hyperplasia) Depression Erectile dysfunction GERD (gastroesophageal reflux disease) History of colon cancer Hyperlipidemia Hypertension Kidney stones Serous otitis media Vertigo Surgical History Surgical History History of arthroscopy of right knee History of colon resection History of colonoscopy History of cystoscopy History of esophagogastroduodenoscopy (EGD) History of lithotripsy History of myringotomy Family History Family History Father Acute myocardial infarction Congestive heart failure Social History Social History Smoking status: Never smoker Alcohol intake: never Substance use: never Substance use type: does not use Gender identity (if verbalized by the patient): Male Spiritual care concerns: No Agree to blood products: Yes Exam Const: General: healthy appearing, no acute distress and alert Orientation/consciousness: patient oriented x3 HENMT: Head: normal to inspection Resp: Effort & Inspection: normal respiratory effort Auscultation: clear to auscultation bilaterally Cardio: Rate: tachycardic Rhythm: regular rhythm GI: GI Palp: Yes Soft to palpation and No Tenderness to palpation present (GI) Skin: General skin exam: normal color Neuro: General: patient oriented x3, moves all extremities, no meningeal signs and CN's II-XI intact bilaterally Speech: normal speech Extrem: General: normal to inspection and no edema Course Vital Signs Vital signs: Vital Signs Temperature 38.1 C H 04/24/20 16:46 Pulse Rate 89 04/24/20 16:46 Respiratory Rate 19 04/24/20 16:46 Blood Pressure 162/69 H 04/24/20 16:46 Pulse Oximetry 99
[2020-04-24 17:26] LABS: Alanine Aminotransferase 35 U/L (4-50); Albumin Level 3.9 g/dL (3.5-5.1); Alkaline Phosphatase 134 U/L (38-126); Anion Gap 6 mmol/L (8-16); Aspartate Amino Transferase 35 U/L (17-59); Bilirubin,Total 0.7 mg/dL (0.2-1.3); Blood Urea Nitrogen 23 mg/dL (9-20); Calcium 8.9 mg/dL (8.4-10.2); Carbon Dioxide 29 mmol/L (22-30); Chloride 107 mmol/L (98-107); Estimated CRCL calculation 38 ml/min; Estimated Glomerular Filt Rate 43; Glucose 119 mg/dL (75-110); Potassium 4.3 mmol/L (3.4-5.0); Sodium 142 mmol/L (137-145)
[2020-04-24 18:25] LABS: CRP 1.4 mg/dL (<1.0)
[2020-04-24 18:26] LABS: Lactic Acid Reflex 1.2 mmol/L (0.7-2.1)
[2020-04-24 18:43] LABS: Add Urine Microscopic? YES; Appearance Urine Clear (Clear); Bilirubin Urine Negative (Negative); Blood Urine 1+ (Negative); Color Urine Yellow (Yellow); Glucose Urine UA Negative (Negative); Ketones Urine Negative (Negative); Leukocyte Esterase Ur Trace LEU/UL (Negative); Mucus Urine Rare /lpf; Nitrate Urine Negative (Negative); Protein Urine Negative (Negative); Specific Grav Ur 1.019 (1.001-1.035); Squamous Epithelial Cell Urine Rare /hpf (Few); Urobilinogen Urine Negative mg/dL (<2.0); WBC Urine 0-3 /hpf
[2020-04-24 18:57] VITALS: BP 165/77; PULSE 100; RESP 18; O2SAT 99
[2020-04-24 19:41] VITALS: BP 144/64; PULSE 92; RESP 20; O2SAT 97
[2020-04-25 19:17] LABS: SARS-CoV-2 RNA PCR Negative
== END 2020-04-24 19:43 | disposition home or self-care (01) ==
PROVIDERS: Emergency Provider Emergency Medicine
DX: E86.0 Dehydration (principal); R50.9 Fever, unspecified; N20.1 Calculus of ureter; Z20.828 Contact with and (suspected) exposure to other viral communicable diseases; M19.90 Unspecified osteoarthritis, unspecified site; N40.0 Benign prostatic hyperplasia without lower urinary tract symptoms; F32.9 Major depressive disorder, single episode, unspecified; K21.9 Gastro-esophageal reflux disease without esophagitis; Z85.038 Personal history of other malignant neoplasm of large intestine; E78.5 Hyperlipidemia, unspecified; I10 Essential (primary) hypertension; Z87.442 Personal history of urinary calculi; Z79.82 Long term (current) use of aspirin; Z90.49 Acquired absence of other specified parts of digestive tract; R94.31 Abnormal electrocardiogram [ECG] [EKG]
CPT/HCPCS: 36415; 80053; 81001; 83605; 85025; 86140; 87040; 87077; 87186; 87635; 93005; 96361; 96374; 99284; C9803; J2405; J7030; U0003

== ENCOUNTER 2020-04-28 10:55 | Day surgery (SDC) | payer MEDICARE, SELFPAY ==
[2020-04-28] VITALS (7 sets, daily range): BP systolic 133–150; BP diastolic 69–81; PULSE 77–96; RESP 16–20; TEMP 36.2–36.6; O2SAT 92–100; BMI 29.0
--- NOTE | ~2020-04-28 | XR_ITS ---
EXAMINATION: XR retrograde pyelo w/stent RT DATE: 04/28/2020 14:04 INDICATION: Left internal ureteral stent TECHNIQUE: Fluoroscopic images from a left internal ureteral stent placement are submitted for review . 4 fluoroscopic images. FINDINGS: There is a left double-J internal ureteral stent projecting in expected position, with proximal [place] loop at the level of the renal pelvis and distal loop in the pelvis within the bladder lumen. IMPRESSION: 1. Left internal ureteral stent placement. Please refer to real-time procedural findings for detail s. Reviewed, dictated and finalized at location B. CONSULTANT IMPRESSION: 1. Left internal ureteral stent placement. Please refer to real-time procedur al findings for details.
--- NOTE | ~2020-04-28 | XR_ITS ---
XR abdomen/kub 1V 04/28/2020 11:17 INDICATION: Right ureteral stone TECHNIQUE: KUB COMPARISON: 12/02/2019 FINDINGS: Bowel gas pattern is normal. There is no evidence of free air, mass, organomegaly, ascites or obstruction. There is a stone in the lower pole of the right kidney. Stable sclerotic lesion of t he right pelvis, consistent with a bone island. IMPRESSION: 1: Right nephrolithiasis. Reviewed, dictated and finalized at location B. MOTIVE MACHINIST APPRENTICE IMPRESSION: 1: Right nephrolithiasis.
--- NOTE | 2020-04-28 12:07 | WPDANESEPPF ---
Anes - Initial Pre Proc Eval Procedure: Operation Date: 04/28/20 13:30 Proposed Procedures p Cystoscopy, Right Ureteroscopy,Right Retrograde Pyelogram, Right Stone Extraction, Possible Right Stent Placement - Dante Galindo MD s Possible Holmium Laser Procedure - Dante Galindo MD Date/Time: 04/28/20 12:07 Surgeon: Dante Galindo MD Pre Op Diagnosis: right ureteral calculus Patient Data Age: 69 Gender: M Height: Weight: Allergies Allergy/AdvReac Type Severity Reaction Status Date / Time sulfamethoxazole Allergy Severe NAUSEA Verified 04/24/20 04:37 VOMITING trimethoprim Allergy Severe NAUSEA Verified 04/24/20 04:37 VOMITING Penicillins AdvReac Mild HEADACHES Verified 04/24/20 04:37 Home Medications Medication Instructions Recorded Confirmed Type amlodipine 5 mg PO DAILY 09/25/19 09/28/19 History aspirin [Aspirin Low Dose] 81 mg PO DAILY 09/25/19 09/27/19 History atorvastatin 20 mg PO HS 09/25/19 09/28/19 History escitalopram oxalate 20 mg PO DAILY 09/25/19 09/28/19 History meclizine 12.5 - 25 mg PO TID PRN 09/25/19 09/28/19 History sildenafil [Viagra] 100 mg PO PRN PRN 09/25/19 09/27/19 History tamsulosin 0.4 mg PO DAILY 09/25/19 09/27/19 History diphenhydramine-acetaminophen 1 tablet PO HS PRN 01/27/20 History docusate sodium [Colace] 100 mg PO HS 04/24/20 History finasteride 5 mg PO DAILY 04/24/20 History hydrocodone-acetaminophen [[place]] 1 tablet PO Q6H PRN #12 tablet 04/24/20 Rx lansoprazole 30 mg PO DAILY 04/24/20 History ondansetron 4 mg PO Q6H PRN #12 tablet 04/24/20 Rx Patient hx anesthesia problems: post op nausea/vomiting Family hx anesthesia problems: none PMFSH Past Medical History Medical History Arthritis BPH (benign prostatic hyperplasia) Depression Erectile dysfunction GERD (gastroesophageal reflux disease) History of colon cancer Hyperlipidemia Hypertension Kidney stones Serous otitis media Vertigo Surgical History Surgical History History of arthroscopy of right knee History of colon resection History of colonoscopy History of cystoscopy History of esophagogastroduodenoscopy (EGD) History of lithotripsy History of myringotomy Family History Family History Father Acute myocardial infarction Congestive heart failure Social History Social History Smoking status: Never smoker Alcohol intake: never Substance use: never Substance use type: does not use Gender identity (if verbalized by the patient): Male Spiritual care concerns: No Agree to blood products: Yes Anes - Eval Final PreProcedure Day of Procedure 04/28/20 12:07 Patient weight: overweight Heart: regular rate and rhythm Lungs: clear to auscultation Airway: Mallampati scale class II Neurological: alert and oriented Last oral intake: >/= 8 hours ASA classification: III Emergent: no Anesthetic plan: proceed Anesthesia type and monitoring: general LMA and standard monitoring Informed Consent: The patient's anesthetic plan and its attendant risks and benefits were discussed with the patient/family/POA. Questions were solicited and answers provided to the satisfaction of the patient/family/POA.
[2020-04-28] MEDS: LACTATED RINGERS 1,000 ML 30 ML IV CONT (12:40)
[2020-04-28] MEDS: SCOPOLAMINE 1.5 MG PATCH TRANSDERM (12:45)
--- NOTE | 2020-04-28 12:49 | WPDHPUPDATE1 ---
History and Physical Update Update Date/Time: 04/28/20 12:49 History and Physical has been reviewed, including an updated exam of the patient. There are NO changes in the patient's condition. Risks, benefits, and alternatives have been discussed and questions answered. Patient agrees to proceed with procedure.
[2020-04-28] MEDS: levoFLOXacin 500 MG/D5W 100 ML 500 MG/100 ML BAG 100 MG IVPB (13:19)
[2020-04-28] MEDS: LIDOCAINE HCL 2% GEL UROJET 10 ML PKG MUCOUS MEM (13:47)
--- NOTE | 2020-04-28 14:02 | PM.PROC ---
Procedure Note - Detailed Date of procedure: 04/28/20 Pre-op diagnosis: right ureteral calculus Post-op diagnosis: same Procedure performed: Urethral dilation, cystoscopy, right retrograde pyelogram, right ureteroscopy with stone extraction, right ureteral stent placement 4.8 [place] contour Description of procedure: Patient is taken to the operative suite with the. Once anesthesia was obtained was placed in the dorsal lithotomy position and prepped and draped usual sterile fashion. We could not pass the scope into the meatus and thus we dilated up to 24 [place] using male sounds. Twenty-two [place] scope was inserted into the bladder in direct vision he has no other urethral strictures. Prostate is enlarged with the lateral lobes and a very elevated median bar area. He also has a lobe extending into the bladder. The bladder has heavy trabeculation. No discrete tumors noted at this time. We able to visualize the right ureteral orifice and cannulated with a wire. Eight hundred ten dilator was then used. We placed also ureteral access sheath in. Stone was visualized with the flexible ureteral scope. Stone was visualized grasped and removed in its entirety. With placement of the wire there was no evidence of purulence and that is why we proceeded. A pyelogram was then performed to confirm placement of the stent. A 4.8 [place] contour stent was then placed with the proximal end coiled in the renal pelvis and the distal in the bladder. Bladder was drained. 2% viscous lidocaine was inserted urethra is taken recovery stable condition. He will be discharged home with Ultram and antibiotics. He will follow up in a week's time for stent removal is to call for that appointment. Anesthesia: GLMA Surgeon: Dante Galindo MD Drains: Yes Packing: No Pathology: yes Complications: No immediate complications Condition: stable Disposition: PACU
== END 2020-04-28 14:45 | disposition home or self-care (01) ==
PROVIDERS: Visit Provider Urology
PROC: (CPT 52352; principal; 2020-04-28 13:30)
DX: N20.1 Calculus of ureter (principal); I10 Essential (primary) hypertension; E78.5 Hyperlipidemia, unspecified; K21.9 Gastro-esophageal reflux disease without esophagitis; N40.0 Benign prostatic hyperplasia without lower urinary tract symptoms; Z85.038 Personal history of other malignant neoplasm of large intestine; Z90.49 Acquired absence of other specified parts of digestive tract
CPT/HCPCS: 52332; 52352; 74018; 74420; 82365; 88300; A9270; C1769; C2617; J1100; J1956; J2370; J2405; J2704; J3010; J7120

== ENCOUNTER 2020-06-05 10:57 | Outpatient (CLI) | payer MEDICARE, SELFPAY ==
--- NOTE | ~2020-06-05 | US_ITS ---
EXAMINATION: US retroperitoneal comp EXAM DATE: 06/05/2020 11:31 INDICATION: Right ureteral stone on prior CT in March. Stent removed. TECHNIQUE: Multiple grayscale and Doppler images of the kidneys were obtained (by a technologist who performed the scan) and subsequently reviewed. There is no prior study for comparison. FINDINGS: Right kidney: There is normal contour and echogenicity. It measures 10.7 x 5.0 x 5.3 centimeters. Th ere is a 1 cm exophytic lesion most likely a cyst. There is no hydronephrosis. Left kidney: There is normal contour and echogenicity. It measures 10.7 x 5.7 x 5.1 centimeters. The re is a 1.3 cm exophytic lesion most likely a cyst. There is no hydronephrosis. Bladder unremarkable. IMPRESSION: 1. Sonographically unremarkable kidneys. Reviewed, dictated and finalized at location B. ET FLAP CREASING MACHINE OPERATOR
== END 2020-06-05 10:58 | disposition home or self-care (01) ==
PROVIDERS: Visit Provider Urology
DX: N20.1 Calculus of ureter (principal)
CPT/HCPCS: 76770

== ENCOUNTER 2024-09-27 15:03 | Outpatient (CLI) | payer MEDICARE, SELFPAY ==
--- NOTE | ~2024-09-27 | MR_ITS ---
EXAMINATION: MR shoulder LT wo con DATE: 09/27/2024 15:53 INDICATION: Rotator cuff tendinitis TECHNIQUE: Magnetic resonance imaging (MRI) of the left shoulder was performed without intravenous co ntrast. Sequences included axial PD-weighted FS FSE, coronal oblique PD-weighted FS FSE, coronal obli que T2-weighted FS FSE, sagittal PD-weighted FS FSE, and sagittal T1-weighted SE. COMPARISON: None. FINDINGS: Evaluation mildly limited by motion artifact report on multiple sequences including repeated sequence s. Coracoacromial arch: The acromion undersurface is curved in morphology (type II). The coracoacromial ligament is normal. M ild acromioclavicular osteoarthritis. Rotator cuff: Mild to moderate supraspinatus and infraspinatus tendinopathy. There is a small articular sided tear along the footplate of the conjoined portion of the supraspinatus and infraspinatus tendons which nithin sures 8 mm AP along the anterior middle facet footplate and with 5 mm retraction of the articular mayo e of the tear. The tear involves up to two thirds of the tendon thickness. The teres minor and subsca pularis tendons are normal. Normal rotator cuff muscle bulk and signal. Biceps tendon, glenoid labrum and glenohumeral cartilage: Long head of the biceps tendon is normal. Glenoid labrum is normal. Mild nonuniform partial cartilage loss along portions of the humeral head and glenoid. There is a small focus of subarticular edema-li ke signal change at the medial side of the humeral head suggesting overlying high-grade chondromalaci a. Fluid: Physiologic amount of fluid in the glenohumeral joint and biceps tendon sheath. No loose osteochondr al bodies. Moderate amount of fluid in the subacromial/subdeltoid bursa consistent with moderate burs itis. Bones: Bone alignment is normal. No fracture or pathologic marrow replacing process. IMPRESSION: 1. Mild to moderate supraspinatus and infraspinatus tendinopathy with small moderate severity particu lar sided tear at the footplate of the conjoined portion of the tendons. 2. Mild glenohumeral and acromioclavicular osteoarthritis. 3. Moderate subacromial/subdeltoid bursitis. Reviewed, dictated and finalized at location A. IMPRESSION: 1. Mild to moderate supraspinatus and infraspinatus tendinopathy with small mod erate severity particular sided tear at the footplate of the conjoined portion of the tendons. 2. Mild glenohumeral and acromioclavicular osteoarthritis. 3. Moderate subacromial/subdeltoid bursitis.
== END 2024-09-27 15:04 | disposition home or self-care (01) ==
LOC: GOSHIMG 15:04
PROVIDERS: PCP Physician Assistant; Visit Provider Physician Assistant
DX: M75.82 Other shoulder lesions, left shoulder (principal); S46.812A Strain of other muscles, fascia and tendons at shoulder and upper arm level, left arm, initial encounter; X58.XXXA Exposure to other specified factors, initial encounter; M19.012 Primary osteoarthritis, left shoulder; M75.52 Bursitis of left shoulder
CPT/HCPCS: 73221